=== PATIENT | female | born 1990 | race African-American/Black ===

== ENCOUNTER 2017-02-27 12:23 | Outpatient (CLI) | payer OTHER ==
[~2017-02-27] VITALS: Ht 157.5 cm; Wt 64.5 kg
[2017-02-27 12:50] VITALS: BP 107/64
[2017-02-27] MEDS ORDERED: FIORICET TAB PO ONE (13:45)
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
[2017-02-27 14:07] LABS: MEAN CORPUSCULAR HEMOGLOBIN 30.3 pg (27.0-33.0); MEAN CORPUSCULAR HGB CONC 32.6 g/dl (32.0-36.5); MEAN CORPUSCULAR VOLUME 92.9 fl (80.0-96.0); PLATELET COUNT, AUTOMATED 237 10^3/uL (150-450); RED CELL DISTRIBUTION WIDTH 12.8 % (11.5-14.5); WHITE BLOOD COUNT 6.9 10^3/uL (4.0-10.0)
[2017-02-27 14:40] LABS: ALT/SGPT 15 U/L (12-78); AST/SGOT 12 U/L (7-37); BILIRUBIN,TOTAL 0.3 MG/DL (0.2-1.0); CREATININE FOR GFR 0.53 MG/DL (0.55-1.02); GLOMERULAR FILTRATION RATE > 60.0 (>60)
== END 2017-02-27 15:10 | disposition home or self-care (01) ==
LOC: M LDO 12:23
PROVIDERS: ATTEND Obstetrics & Gynecology
DX: O99.352 Diseases of the nervous system complicating pregnancy, second trimester (principal); G43.909 Migraine, unspecified, not intractable, without status migrainosus; O26.892 Other specified pregnancy related conditions, second trimester; R10.2 Pelvic and perineal pain; Z87.59 Personal history of other complications of pregnancy, childbirth and the puerperium; O90.6 Postpartum mood disturbance; Z3A.24 24 weeks gestation of pregnancy

== ENCOUNTER 2017-04-27 09:12 | Outpatient (CLI) | payer OTHER | END 2017-04-27 14:56 | disposition home or self-care (01) | LOC: M LDO 09:12 | DX: O36.8130 Decreased fetal movements, third trimester, not applicable or unspecified (principal); Z3A.33 33 weeks gestation of pregnancy; R10.9 Unspecified abdominal pain; O23.43 Unspecified infection of urinary tract in pregnancy, third trimester | CPT/HCPCS: 59025 ==

== ENCOUNTER 2017-05-29 09:09 | Outpatient (CLI) | payer OTHER ==
[2017-05-29 10:19] LABS: TOTAL PROTEIN,RANDOM URINE 57.8 MG/DL (0.0-12.0)
[2017-05-29 10:37] LABS: ALT/SGPT 11 U/L (12-78); AST/SGOT 15 U/L (7-37); BILIRUBIN,TOTAL 0.4 MG/DL (0.2-1.0); CREATININE FOR GFR 0.77 MG/DL (0.55-1.30); GLOMERULAR FILTRATION RATE > 60.0 (>60); LDH LACTATE DEHYDROGENASE 202 U/L (84-246); URIC ACID 5.4 MG/DL (2.6-6.0)
== END 2017-05-29 12:48 | disposition home or self-care (01) ==
LOC: M LDO 09:09
DX: O26.893 Other specified pregnancy related conditions, third trimester (principal); R03.0 Elevated blood-pressure reading, without diagnosis of hypertension; Z3A.36 36 weeks gestation of pregnancy
CPT/HCPCS: 59025; 84460

== ENCOUNTER → 2017-05-30 | Outpatient (REF) | payer OTHER ==
[2017-05-30 19:00] LABS: TOTAL VOLUME, URINE 750 ML
[2017-05-30 19:07] LABS: TOTAL PROTEIN 24 HOUR URINE 439.5 MG/24HR (50-150); URINE TOTAL PROTEIN 58.6 MG/DL (0-12)
== END ==
LOC: M LAB REF 17:43
DX: R80.9 Proteinuria, unspecified (principal)
CPT/HCPCS: 81050

== ENCOUNTER 2017-05-31 09:58 | Inpatient (IN) | payer OTHER ==
[2017-05-31 10:38] LABS: HEMATOCRIT 31.7 % (36.0-47.0); HEMOGLOBIN 9.6 g/dl (12.0-16.0); MEAN CORPUSCULAR HEMOGLOBIN 25.4 pg (27.0-33.0); MEAN CORPUSCULAR HGB CONC 30.3 g/dl (32.0-36.5); MEAN CORPUSCULAR VOLUME 83.9 fl (80.0-96.0); PLATELET COUNT, AUTOMATED 145 10^3/uL (150-450); RED BLOOD COUNT 3.78 10^6/uL (4.00-5.40); RED CELL DISTRIBUTION WIDTH 14.6 % (11.5-14.5); WHITE BLOOD COUNT 5.5 10^3/uL (4.0-10.0)
[2017-05-31] MEDS ORDERED: CALCIUM GLUCONATE 1,000 MG in D5W MINI-BAG PLUS 100 ML IV ×2 (10:45→15:15)
[2017-05-31 11:09] LABS: ALT/SGPT 10 U/L (12-78); AST/SGOT 13 U/L (7-37); BILIRUBIN,TOTAL 0.4 MG/DL (0.2-1.0); CREATININE FOR GFR 0.77 MG/DL (0.55-1.30); GLOMERULAR FILTRATION RATE > 60.0 (>60); LDH LACTATE DEHYDROGENASE 222 U/L (84-246); URIC ACID 5.5 MG/DL (2.6-6.0)
[2017-05-31] MEDS: MAG Sulf (L&D) 4 GM/100 ML 4 GM in APPROPRIATE DILUENT 1 EA IV (11:39)
[2017-05-31] MEDS: LR 1,000 ML IV (12:00)
[2017-05-31] MEDS: MAG Sulf (OBGYN) 20GM/500ML 20,000 MG in APPROPRIATE DILUENT 1 EA IV ×2 (12:14→22:08)
[2017-05-31] MEDS ORDERED: METOCLOPRAMIDE INJ 10MG/2ML VIAL (J2765) As Ordered (12:50)
[2017-05-31] MEDS: METOCLOPRAMIDE INJ 10MG/2ML VIAL (J2765) IV (13:06)
[2017-05-31] MEDS: GENTAMICIN 80 MG in APPROPRIATE DILUENT 1 EA IV (13:11)
[2017-05-31] MEDS: BICITRA 30ML SOLN UDC PO (13:22)
[2017-05-31] MEDS ORDERED: OXYTOCIN INJ 10 UNITS/ML VIAL (J2590) As Ordered ×5 (13:22→13:27)
[2017-05-31] MEDS ORDERED: MORPHINE PRES-FREE INJ 10 MG/10 ML VIAL (J2274) As Ordered (13:22)
[2017-05-31] MEDS: CLINDAMYCIN 900 MG in APPROPRIATE DILUENT 1 EA IV (13:30)
[2017-05-31] MEDS ORDERED: ONDANSETRON 4MG/2ML VIAL (J2405) As Ordered (14:07)
[2017-05-31] MEDS ORDERED: ePHEDrine SULFATE 25 MG/5 ML(5MG/ML) SYRINGE As Ordered (14:16)
[2017-05-31] MEDS ORDERED: PHENYLephrine HCL 500 MCG/5 ML (100MCG/ML) SYRINGE (J2370) As Ordered (14:16)
[2017-05-31] MEDS ORDERED: ONDANSETRON 4MG/2ML VIAL (J2405) IV ×2 (15:15→15:45)
[2017-05-31] MEDS ORDERED: LR 1,000 ML IV (15:15)
[2017-05-31] MEDS ORDERED: fentaNYL 100 MCG/2 ML INJECTION (J3010) IV ×2 (15:15→15:45)
[2017-05-31] MEDS ORDERED: PERCOCET 5MG/325MG TAB PO ×2 (15:15→15:45)
[2017-05-31] MEDS ORDERED: KETOROLAC 30 MG/ML VIAL (J1885) IV ×2 (15:15→15:45)
[2017-05-31] MEDS: DOCUSATE SODIUM 100 MG CAP PO (20:47)
[2017-05-31] MEDS: KETOROLAC 30 MG/ML VIAL (J1885) IV (21:32)
[2017-06-01 07:09] LABS: HEMATOCRIT 24.4 % (36.0-47.0); MEAN CORPUSCULAR HEMOGLOBIN 25.4 pg (27.0-33.0); MEAN CORPUSCULAR HGB CONC 29.9 g/dl (32.0-36.5); PLATELET COUNT, AUTOMATED 124 10^3/uL (150-450); RED BLOOD COUNT 2.87 10^6/uL (4.00-5.40); RED CELL DISTRIBUTION WIDTH 14.5 % (11.5-14.5); WHITE BLOOD COUNT 8.5 10^3/uL (4.0-10.0)
[2017-06-01 07:10] LABS: HEMOGLOBIN 7.3 g/dl (12.0-16.0)
[2017-06-01] MEDS: PRENATAL VITAMINS CHEWABLE TABLET PO (09:20)
[2017-06-01] MEDS: DOCUSATE SODIUM 100 MG CAP PO ×2 (09:20→21:03)
[2017-06-01] MEDS: MAG Sulf (OBGYN) 20GM/500ML 20,000 MG in APPROPRIATE DILUENT 1 EA IV (09:21)
[2017-06-01] MEDS: LR 1,000 ML IV (09:22)
[2017-06-01] MEDS: KETOROLAC 30 MG/ML VIAL (J1885) IV (10:49)
[2017-06-01] MEDS: LABETALOL 200 MG TAB PO ×2 (10:49→21:04)
[2017-06-01] MEDS: IBUPROFEN 800 MG TAB PO (18:15)
[2017-06-01] MEDS: PERCOCET 5MG/325MG TAB PO ×2 (18:53→23:08)
[2017-06-02] MEDS: IBUPROFEN 800 MG TAB PO ×3 (01:53→17:07)
[2017-06-02] MEDS: PERCOCET 5MG/325MG TAB PO ×3 (05:45→18:31)
[2017-06-02] MEDS: RHOGAM 300 MCG (1500 IU) INJ (J2790) IM (07:24)
[2017-06-02] MEDS: MEASLES,MUMPS,RUBELLA VACCINE INJ (MMR-II) (90707) SC (07:24)
[2017-06-02] MEDS: PRENATAL VITAMINS CHEWABLE TABLET PO (08:14)
[2017-06-02] MEDS: DOCUSATE SODIUM 100 MG CAP PO ×2 (08:14→20:37)
[2017-06-02] MEDS: LABETALOL 200 MG TAB PO ×2 (08:15→20:37)
[2017-06-03] MEDS: IBUPROFEN 800 MG TAB PO ×3 (01:31→17:55)
[2017-06-03] MEDS: PERCOCET 5MG/325MG TAB PO ×4 (01:31→20:52)
[2017-06-03] MEDS: LABETALOL 200 MG TAB PO ×3 (06:30→15:10)
[2017-06-03] MEDS: PRENATAL VITAMINS CHEWABLE TABLET PO (09:56)
[2017-06-03] MEDS: DOCUSATE SODIUM 100 MG CAP PO ×2 (09:57→20:52)
[2017-06-03] MEDS: LABETALOL 100 MG TAB PO (20:51)
[2017-06-03] MEDS: NIFEdipine 30 MG XL TAB PO (22:49)
[2017-06-04] MEDS: hydrALAZINE INJ 20 MG/ML VIAL IV (00:13)
[2017-06-04] MEDS: IBUPROFEN 800 MG TAB PO ×3 (03:03→17:53)
[2017-06-04] MEDS: LABETALOL 100 MG TAB PO ×3 (05:11→21:16)
[2017-06-04] MEDS: PERCOCET 5MG/325MG TAB PO ×4 (06:46→21:13)
[2017-06-04] MEDS: PRENATAL VITAMINS CHEWABLE TABLET PO (09:22)
[2017-06-04] MEDS: DOCUSATE SODIUM 100 MG CAP PO ×2 (09:22→21:12)
[2017-06-04] MEDS: diphenhydrAMINE 25 MG CAP PO (22:04)
[2017-06-05] MEDS: IBUPROFEN 800 MG TAB PO (01:46)
[2017-06-05] MEDS: PERCOCET 5MG/325MG TAB PO (01:47)
[2017-06-05] MEDS: LABETALOL 100 MG TAB PO (05:16)
[2017-06-05] MEDS: PRENATAL VITAMINS CHEWABLE TABLET PO (08:20)
[2017-06-05] MEDS: DOCUSATE SODIUM 100 MG CAP PO (08:20)
== END 2017-06-05 11:30 | disposition home or self-care (01) | DRG 766 ==
LOC: M LDI 09:58 → M OBS 06-01 09:51 → M LDI 06-01 09:52 → M OBS 06-01 10:30
PROC: 10D00Z1 Extraction of Products of Conception, Low, Open Approach (ICD-10-PCS; principal; 2017-05-31 13:36)
PROC: 0UL70CZ Occlusion of Bilateral Fallopian Tubes with Extraluminal Device, Open Approach (ICD-10-PCS; 2017-05-31 13:36)
DX: O14.14 Severe pre-eclampsia complicating childbirth (principal); Z37.0 Single live birth; Z3A.36 36 weeks gestation of pregnancy; O34.219 Maternal care for unspecified type scar from previous cesarean delivery; Z88.1 Allergy status to other antibiotic agents; Z30.2 Encounter for sterilization